=== PATIENT | male | born 1995 | race Caucasian/White ===

== ENCOUNTER 2019-07-07 13:47 | Emergency (ER) | payer OTHER ==
[~2019-07-07] VITALS: Ht 182.9 cm; Wt 113.4 kg
[2019-07-07] MEDS ORDERED: CLEOCIN HCL150 MG PO (14:49)
[2019-07-07 15:08] VITALS: BP 158/99
== END 2019-07-07 15:08 | disposition home or self-care (01) ==
LOC: M.ERS 13:47
DX: L05.91 Pilonidal cyst without abscess (principal)